=== PATIENT | female | born 1945 | race Two or more races ===

== ENCOUNTER 2019-07-12 11:13 | Emergency (ER) | payer OTHER ==
[~2019-07-12] VITALS: Ht 157.5 cm; Wt 57.2 kg
[2019-07-12] MEDS ORDERED: ZITHROMAX500 MG PO (15:04)
[2019-07-12] MEDS ORDERED: BROMFED DM COU118 ML (17:25)
== END 2019-07-12 15:40 | disposition home or self-care (01) ==
LOC: ER 11:13
DX: J11.1 Influenza due to unidentified influenza virus with other respiratory manifestations (principal)

== ENCOUNTER 2019-07-14 10:39 | Emergency (ER) | payer OTHER ==
[~2019-07-14] VITALS: Ht 157.5 cm; Wt 57.2 kg
[~2019-07-14 10:39] MED LIST: BROMFED DM COU118 ML; ZITHROMAX500 MG PO
== END 2019-07-14 12:45 | disposition home or self-care (01) ==
LOC: ER 10:39
DX: M54.5 Low back pain (principal); R05 Cough

== ENCOUNTER → 2019-07-15 | Outpatient (CLI) | payer OTHER | END | disposition home or self-care (01) | LOC: RAD 14:04 | DX: M54.5 Low back pain (principal); M81.0 Age-related osteoporosis without current pathological fracture; M25.559 Pain in unspecified hip; J10.08 Influenza due to other identified influenza virus with other specified pneumonia; J16.8 Pneumonia due to other specified infectious organisms ==

== ENCOUNTER → 2019-07-23 | Outpatient (CLI) | payer OTHER | END | disposition home or self-care (01) | LOC: TOM 14:28 | DX: I34.8 Other nonrheumatic mitral valve disorders (principal); I36.8 Other nonrheumatic tricuspid valve disorders; R94.5 Abnormal results of liver function studies; M06.9 Rheumatoid arthritis, unspecified; M85.89 Other specified disorders of bone density and structure, multiple sites; M51.37 Other intervertebral disc degeneration, lumbosacral region; M50.30 Other cervical disc degeneration, unspecified cervical region; M25.561 Pain in right knee; M71.20 Synovial cyst of popliteal space [Baker], unspecified knee; M54.42 Lumbago with sciatica, left side; M54.41 Lumbago with sciatica, right side; D86.89 Sarcoidosis of other sites; R05 Cough; J10.1 Influenza due to other identified influenza virus with other respiratory manifestations; L80 Vitiligo; E53.9 Vitamin B deficiency, unspecified; E55.9 Vitamin D deficiency, unspecified; Z68.22 Body mass index [BMI] 22.0-22.9, adult ==

== ENCOUNTER 2020-06-18 19:11 | Emergency (ER) | payer OTHER ==
[~2020-06-18] VITALS: Ht 157.5 cm; Wt 56.7 kg
[2020-06-18] MEDS ORDERED: ROSUVASTATIN CAL5 MG PO (19:48)
[2020-06-18] MEDS ORDERED: PREDNISONE50 MG (19:48)
[2020-06-18] MEDS ORDERED: RAYOS2 MG (19:49)
== END 2020-06-18 23:52 | disposition home or self-care (01) ==
LOC: ER 19:11
DX: R53.81 Other malaise (principal); B96.0 Mycoplasma pneumoniae [M. pneumoniae] as the cause of diseases classified elsewhere; Z03.818 Encounter for observation for suspected exposure to other biological agents ruled out

== ENCOUNTER → 2020-09-15 08:35 | Outpatient (CLI) | payer OTHER ==
[~2020-09-15 08:35] MED LIST changes: +PREDNISONE50 MG; +RAYOS2 MG; +ROSUVASTATIN CAL5 MG PO
== END | disposition home or self-care (01) ==
LOC: LAB 08:35
PROVIDERS: ATTEND Internal Medicine
DX: I34.8 Other nonrheumatic mitral valve disorders (principal); I36.8 Other nonrheumatic tricuspid valve disorders; R94.5 Abnormal results of liver function studies; D72.10 Eosinophilia, unspecified; M06.89 Other specified rheumatoid arthritis, multiple sites; M51.37 Other intervertebral disc degeneration, lumbosacral region; M85.89 Other specified disorders of bone density and structure, multiple sites; M50.30 Other cervical disc degeneration, unspecified cervical region; M25.561 Pain in right knee; M71.20 Synovial cyst of popliteal space [Baker], unspecified knee; M54.42 Lumbago with sciatica, left side; M54.41 Lumbago with sciatica, right side; R05 Cough; J10.1 Influenza due to other identified influenza virus with other respiratory manifestations; L80 Vitiligo; E53.8 Deficiency of other specified B group vitamins; E55.9 Vitamin D deficiency, unspecified; Z68.22 Body mass index [BMI] 22.0-22.9, adult; N39.0 Urinary tract infection, site not specified; E03.8 Other specified hypothyroidism; D68.8 Other specified coagulation defects

== ENCOUNTER 2020-11-03 16:26 | Outpatient (CLI) | payer OTHER | END 2020-11-03 16:35 | disposition home or self-care (01) | LOC: RAD 16:26 | PROVIDERS: ATTEND Internal Medicine | DX: R07.89 Other chest pain (principal); I34.8 Other nonrheumatic mitral valve disorders; I36.8 Other nonrheumatic tricuspid valve disorders; R94.5 Abnormal results of liver function studies; M06.80 Other specified rheumatoid arthritis, unspecified site; M85.89 Other specified disorders of bone density and structure, multiple sites; M51.37 Other intervertebral disc degeneration, lumbosacral region; M50.30 Other cervical disc degeneration, unspecified cervical region; M25.561 Pain in right knee; M71.20 Synovial cyst of popliteal space [Baker], unspecified knee; M54.42 Lumbago with sciatica, left side; M54.41 Lumbago with sciatica, right side; R05 Cough; J06.9 Acute upper respiratory infection, unspecified; L80 Vitiligo; E53.8 Deficiency of other specified B group vitamins; E55.9 Vitamin D deficiency, unspecified; Z68.22 Body mass index [BMI] 22.0-22.9, adult; D72.19 Other eosinophilia ==

== ENCOUNTER 2021-03-10 10:34 | Outpatient (CLI) | payer OTHER | END 2021-03-10 10:39 | disposition home or self-care (01) | LOC: TOM 10:34 | PROVIDERS: ATTEND Internal Medicine | DX: I34.8 Other nonrheumatic mitral valve disorders (principal); I36.8 Other nonrheumatic tricuspid valve disorders; E78.01 Familial hypercholesterolemia; D70.8 Other neutropenia; M06.8A Other specified rheumatoid arthritis, other specified site; M85.89 Other specified disorders of bone density and structure, multiple sites; M51.37 Other intervertebral disc degeneration, lumbosacral region; M71.20 Synovial cyst of popliteal space [Baker], unspecified knee; M54.42 Lumbago with sciatica, left side; M54.15 Radiculopathy, thoracolumbar region; S22.080S Wedge compression fracture of T11-T12 vertebra, sequela; S22.088 Other fracture of T11-T12 vertebra; M25.30 Other instability, unspecified joint; D86.89 Sarcoidosis of other sites; L80 Vitiligo; E55.9 Vitamin D deficiency, unspecified; E53.8 Deficiency of other specified B group vitamins; M54.2 Cervicalgia; Z68.23 Body mass index [BMI] 23.0-23.9, adult ==

== ENCOUNTER 2021-06-05 20:29 | Emergency (ER) | payer OTHER ==
[~2021-06-05] VITALS: Ht 152.4 cm; Wt 56.2 kg
[2021-06-05] MEDS ORDERED: RAYOS2 MG (21:20)
[2021-06-05] MEDS ORDERED: HYDROXYCHLOROQ200 MG (21:21)
[2021-06-05] MEDS ORDERED: CRESTOR5 MG (21:21)
[2021-06-06] MEDS ORDERED: MEDROLPACK PO (01:57)
[2021-06-06] MEDS ORDERED: ACETAMINOPHEN650 M2 PO (01:57)
[2021-06-06] MEDS ORDERED: AZITHROMYCIN500 MG PO (01:57)
[2021-06-06] MEDS ORDERED: ZYRTEC10 MG PO (01:57)
[2021-06-06] MEDS ORDERED: MUCINEX DM ER1 EAC1 PO (01:57)
== END 2021-06-06 02:23 | disposition home or self-care (01) ==
LOC: ER 20:29
DX: B34.9 Viral infection, unspecified (principal); B96.0 Mycoplasma pneumoniae [M. pneumoniae] as the cause of diseases classified elsewhere; J32.9 Chronic sinusitis, unspecified; Z03.818 Encounter for observation for suspected exposure to other biological agents ruled out

== ENCOUNTER 2021-09-25 15:10 | Outpatient (CLI) | payer OTHER ==
[~2021-09-25 15:10] MED LIST changes: +ACETAMINOPHEN650 M2 PO; +AZITHROMYCIN500 MG PO; +CRESTOR5 MG; +HYDROXYCHLOROQ200 MG; +MEDROLPACK PO; +MUCINEX DM ER1 EAC1 PO; +ZYRTEC10 MG PO
== END 2021-09-25 15:14 | disposition home or self-care (01) ==
LOC: RAD 15:10
PROVIDERS: ATTEND Internal Medicine
DX: M85.89 Other specified disorders of bone density and structure, multiple sites (principal); M51.37 Other intervertebral disc degeneration, lumbosacral region; M71.20 Synovial cyst of popliteal space [Baker], unspecified knee; M54.42 Lumbago with sciatica, left side; M54.15 Radiculopathy, thoracolumbar region; M25.30 Other instability, unspecified joint

== ENCOUNTER → 2022-09-20 16:42 | Outpatient (CLI) | payer OTHER | END | disposition home or self-care (01) | LOC: LAB 16:42 | PROVIDERS: ATTEND Internal Medicine | DX: I36.8 Other nonrheumatic tricuspid valve disorders (principal); E78.00 Pure hypercholesterolemia, unspecified; D86.9 Sarcoidosis, unspecified; D70.9 Neutropenia, unspecified; M85.89 Other specified disorders of bone density and structure, multiple sites; M51.37 Other intervertebral disc degeneration, lumbosacral region; M71.20 Synovial cyst of popliteal space [Baker], unspecified knee; M54.42 Lumbago with sciatica, left side; M54.15 Radiculopathy, thoracolumbar region; S22.080S Wedge compression fracture of T11-T12 vertebra, sequela; S22.089K Unspecified fracture of T11-T12 vertebra, subsequent encounter for fracture with nonunion; M25.30 Other instability, unspecified joint; M80.08XS Age-related osteoporosis with current pathological fracture, vertebra(e), sequela; M79.672 Pain in left foot; M79.671 Pain in right foot; L80 Vitiligo; Z68.22 Body mass index [BMI] 22.0-22.9, adult; N60.21 Fibroadenosis of right breast; N60.22 Fibroadenosis of left breast ==

== ENCOUNTER → 2022-10-01 | Outpatient (CLI) | payer OTHER | END | disposition home or self-care (01) | LOC: NUCLEAR 10:47 | PROVIDERS: ATTEND Internal Medicine | DX: I70.213 Atherosclerosis of native arteries of extremities with intermittent claudication, bilateral legs (principal) ==

== ENCOUNTER 2022-10-02 10:51 | Outpatient (CLI) | payer OTHER | END 2022-10-02 10:57 | disposition home or self-care (01) | LOC: NUCLEAR 10:51 | PROVIDERS: ATTEND Internal Medicine | DX: I83.893 Varicose veins of bilateral lower extremities with other complications (principal); I87.2 Venous insufficiency (chronic) (peripheral) ==